=== PATIENT | male | born 1980 | race Caucasian/White ===

== ENCOUNTER 2020-07-06 18:21 | Emergency (ER) | payer SELFPAY ==
[2020-07-06 18:26] VITALS: TEMP 98.1; BMI 29.0
[2020-07-06 19:20] VITALS: PULSE 95
[2020-07-06 19:44] LABS: BASO % 0.7 % (0-2.0); EOS % 2.7 % (0-4.5); HEMATOCRIT 44.6 % (35.4-49); HEMOGLOBIN 15.2 GM/dL (11.7-16.9); LYMPH % 12.1 % (8-40); MCH 29.4 pg (25.7-33.7); MCHC 34.2 g/dl (32.0-35.9); MEAN PLT VOLUME 9.4 fl (7.5-11.1); MONO % 8.8 % (3.8-10.2); NEUT % 75.7 % (42.8-82.8); PLATELET COUNT 176 K/MM3 (134-434); RBC 5.18 M/mm3 (4.00-5.60); RDW 14.3 % (11.9-15.9); WHITE BLOOD COUNT 6.5 K/mm3 (4.0-10.0)
[2020-07-06 20:16] LABS: CHLORIDE 104 mmol/L (98-107); SODIUM 125 mmol/L (136-145)
[2020-07-06 20:18] LABS: CALCIUM 8.3 mg/dL (8.5-10.1)
[2020-07-06 20:19] LABS: ALBUMIN 3.6 g/dl (3.4-5.0); BLOOD UREA NITROGEN 14.1 mg/dL (7-18); CO2 25 mmol/L (21-32); GLUCOSE,RANDOM 124 mg/dL (74-106)
[2020-07-06 20:22] LABS: CREATININE 1.1 mg/dL (0.55-1.3)
[2020-07-06 20:24] LABS: ALK PHOS 67 U/L (45-117); TOT PROT 8.6 g/dl (6.4-8.2)
[2020-07-06 20:35] LABS: ANION GAP -4 MMOL/L (8-16); SGOT/AST 142 U/L (15-37)
[2020-07-06 21:16] LABS: CHLORIDE 105 mmol/L (98-107); SODIUM 140 mmol/L (136-145)
[2020-07-06 21:18] LABS: ALBUMIN 4.2 g/dl (3.4-5.0); ANION GAP 6 MMOL/L (8-16); BLOOD UREA NITROGEN 16.2 mg/dL (7-18); CALCIUM 9.1 mg/dL (8.5-10.1); CO2 29 mmol/L (21-32); GLUCOSE,RANDOM 94 mg/dL (74-106)
[2020-07-06 21:21] LABS: SGOT/AST 25 U/L (15-37); SGPT/ALT 35 U/L (13-61)
[2020-07-06 21:22] LABS: BILIRUBIN,TOTAL 0.4 mg/dL (0.2-1); TOT PROT 7.6 g/dl (6.4-8.2)
[2020-07-06 21:24] LABS: ALK PHOS 72 U/L (45-117)
[2020-07-06 21:27] VITALS: BP 134/90
== END 2020-07-06 21:29 | disposition home or self-care (01) ==
LOC: JER 18:21
DX: R00.2 Palpitations (principal)
CPT/HCPCS: 36415; 71045-TC-FY; 80053; 83735; 84484; 85025; 85379; 93005; 93010; 99285-25